=== PATIENT | female | born 1955 | race Caucasian/White ===

== ENCOUNTER 2019-02-09 18:27 | Emergency (ER) | payer OTHER, BC ==
[~2019-02-09] VITALS: Ht 167.6 cm; Wt 72.7 kg
[2019-02-09 20:05] VITALS: BP 162/92
--- NOTE | 2019-02-09 20:06 | NUR ---
Pt ambulatory to x-ray with vtc technician.
== END 2019-02-09 21:41 | disposition home or self-care (01) ==
LOC: ER 18:28
DX: M79.641 Pain in right hand (principal); V89.2XXA Person injured in unspecified motor-vehicle accident, traffic, initial encounter; Y93.89 Activity, other specified; Y92.410 Unspecified street and highway as the place of occurrence of the external cause; Y99.8 Other external cause status
CPT/HCPCS: 73130; 99283